=== PATIENT | female | born 1970 | race Hispanic/Latino ===

== ENCOUNTER 2022-03-05 13:20 | Emergency (ER) | payer OTHER, SELFPAY ==
[2022-03-05] MEDS ORDERED: Acetaminophen 500 MG TAB ONE (15:05)
[2022-03-05] MEDS ORDERED: Metoclopramide HCl 10 MG/2 ML VIAL ONE (15:06)
[2022-03-05] MEDS ORDERED: Ventolin HFA Inhaler 60 PUFF INHALER ONE (15:32)
== END 2022-03-05 16:05 | disposition home or self-care (01) ==
LOC: CSHERS 13:20
DX: J11.1 Influenza due to unidentified influenza virus with other respiratory manifestations (principal); Z20.822 Contact with and (suspected) exposure to COVID-19
CPT/HCPCS: 87804; 94760; 96361; 96365; J2765; U0003; U0005